=== PATIENT | female | born 1985 | race Caucasian/White ===

== ENCOUNTER 2023-10-28 05:30 | Inpatient (IN) ==
--- NOTE | 2023-10-26 14:12 | Anesthesiology Consultation ---
Date of Service October 26, 2023 Assessment & Plan (1) Encounter for pre-operative examination: - Per life cycle assessment analyst on 10/26/23: No known infectious disease contacts, current infectious disease symptoms in past 10 days or COVID positive test result in the past 30 days. Chart Review Chart Review: entry level manufacturing engineer initiated History Surgery Operation Date: 10/28/23 07:30 Proposed Procedures p Section (Delivery of Baby Through Abdominal Incision) - Anais Beard MD Height/Weight Height: 5 ft 5 in Weight: 94.801 kg Allergies Allergy/AdvReac Type Severity Reaction Status Date / Time No Known Drug Allergies Allergy Verified 10/26/23 13:50 Medications Home Medications Medication Instructions Recorded Confirmed Last Taken [id number] 1 tab PO DAILY 04/03/23 10/26/23 Unknown [ Gummy] acetone (urine) test (Ketone Urine #50 ea 06/29/23 10/26/23 Unknown Test strips) blood sugar diagnostic (OneTouch #150 ea 06/29/23 10/26/23 Unknown Verio test strips) blood-glucose meter (OneTouch #1 ea 06/29/23 10/26/23 Unknown Verio Reflect Meter) lancets 33 gauge (OneTouch Delica #150 ea 06/29/23 10/26/23 Unknown Plus Lancet) insulin NPH isoph U-100 human 100 8 unit (0.08 mL) subcut QPM #15 mL 07/31/23 10/26/23 Unknown unit/mL (3 mL) subcutaneous pen (Novolin N FlexPen) pen needle, diabetic 32 gauge x #100 ea 07/31/23 10/26/23 Unknown 5/32" (BD Ultra-Fine Shelley Pen Needle) breast pump #1 ea 08/03/23 10/26/23 Unknown Past Medical History Medical History Complete placenta previa nos or without hemorrhage, unspecified trimester reason for planned Gestational diabetes History of chicken pox Migraine "rarely" Past Family History Family History Grandmother (Paternal) Diabetes Father Diabetes Other No family history of adverse response to anesthesia Denies family history of Ovarian cancer Breast cancer Colorectal cancer Past Surgical History Surgical History [place] teeth removed Social History Smoking Status: Never smoker Do You Dip or Chew Tobacco: No Hx Alcohol Use: No substance use type: does not use
[2023-10-28] MEDS ORDERED: LACTATED RINGER'S 1,000 ML IV PRN (05:37)
[2023-10-28] MEDS ORDERED: OXYTOCIN 30 UNITS/NSS 30 UNITS/500 ML BAG IV PRN (05:37)
[2023-10-28] MEDS ORDERED: LIDOCAINE 1% LOCAL 20 ML VIAL INFIL PRN (05:37)
[2023-10-28] MEDS ORDERED: SODIUM CHLORIDE 0.9% 250 ML IV PRN (05:49)
[2023-10-28] MEDS: LACTATED RINGER'S 1,000 ML IV SCH ×2 (05:52→19:11)
[2023-10-28 05:59] LABS: Appearance Urine Cloudy (Clear); Bacteria Urine Automated 1+ (None Seen); Bilirubin Urine Negative (Negative); Blood Urine Negative (Negative); Color Urine Yellow; Glucose Urine UA Negative (Negative); Ketones Urine 2+ (Negative); Leukocyte Esterase Urine 2+ (Negative); Nitrite Urine Negative (Negative); Protein Urine Trace (Negative); Specific Gravity Urine 1.022 (1.000-1.030); Urobilinogen Urine Negative (Negative); WBC Urine Automated 21-50 /hpf (0-5); pH Urine 6.5 (4.5-7.5)
[2023-10-28 06:19] LABS: Basophils # (auto) 0.04 K/uL (0.00-0.20); Basophils % (auto) 0.6 %; Eosinophils # (auto) 0.05 K/uL (0.00-0.50); Eosinophils % (auto) 0.7 %; Hematocrit (blood only) 35.2 % (37.0-47.0); Hemoglobin 12.1 g/dl (12.0-16.0); Immature Granulocytes # (auto) 0.04 K/uL (0.01-0.20); Immature Granulocytes % (auto) 0.6 %; Lymphocytes # (auto) 1.85 K/uL (1.20-3.40); Lymphocytes % (auto) 26.4 %; Mean Corpuscular Hemoglobin 29.4 pg (25.0-34.0); Mean Corpuscular Hgb Conc 34.4 g/dL (32.0-36.0); Mean Corpuscular Volume 85.4 fL (80.0-100.0); Mean Platelet Volume 9.4 fL (9.4-12.4); Monocytes # (auto) 0.51 K/uL (0.11-0.59); Monocytes % (auto) 7.3 %; Neutrophils # (auto) 4.51 K/uL (1.40-6.50); Neutrophils % (auto) 64.4 %; Platelet Count 279 K/uL (130-400); RDW Standard Deviation 40.1 fL (36.4-46.3); Red Blood Count 4.12 M/uL (4.20-5.40)
[2023-10-28] MEDS ORDERED: OXYTOCIN 10 UNITS/ML VIAL ONE ×2 (06:48→07:16)
[2023-10-28] MEDS ORDERED: METHYLERGONOVINE MALEATE 0.2 MG/ML AMP ONE (06:52)
[2023-10-28] MEDS ORDERED: CARBOPROST TROMETHAMINE 250 MCG/ML AMPUL ONE (07:12)
[2023-10-28] MEDS ORDERED: DEXAMETHASONE SOD INJ 4 MG/ML VIAL ONE (07:16)
[2023-10-28] MEDS ORDERED: ONDANSETRON INJ 2 MG/ML 2 ML VIAL ONE (07:16)
[2023-10-28] MEDS ORDERED: GLYCOPYRROLATE 0.2 MG/ML VIAL ONE (07:16)
--- NOTE | 2023-10-28 07:27 | History & Physical Bridge Note ---
Date of Service October 28, 2023 History & Physical Bridge Note I have examined the patient, reviewed the History & Physical and in the interval since the performance of the History & Physical I have noted the following changes of clinical significance: no changes noted
[2023-10-28] MEDS: CITRIC ACID/SODIUM CITRATE 15 ML UDC PO SCH (07:36)
[2023-10-28] MEDS ORDERED: MoRPHine SULFATE PF 1 MG/ML 10 ML AMP/VIAL ONE (07:48)
[2023-10-28] MEDS ORDERED: fentaNYL citrate PF 100 MCG/2 ML VIAL ONE (07:48)
[2023-10-28] MEDS: ceFAZolin 2000MG 2,000 MG/15 ML SYR IV STA (07:48)
[2023-10-28] MEDS ORDERED: HYDROmorphone INJ 0.5 MG/0.5 ML SYR IV PRN (08:28)
[2023-10-28] MEDS ORDERED: NALBUPHINE HCL 5 MG in SYRINGE 0 ML IV PRN (08:28)
[2023-10-28] MEDS ORDERED: LACTATED RINGER'S 500 ML IV PRN (08:28)
[2023-10-28] MEDS ORDERED: NALOXONE HCL 0.4 MG/1 ML VIAL/CARP IV PRN (08:28)
[2023-10-28] MEDS ORDERED: diphenhydrAMINE 50 MG/ML VIAL IV PRN ×2 (08:28→09:44)
[2023-10-28] MEDS ORDERED: ONDANSETRON INJ 2 MG/ML 2 ML VIAL IV PRN ×2 (08:28→09:44)
[2023-10-28] MEDS ORDERED: MoRPHine SULFATE PF 1 MG/ML 10 ML AMP/VIAL INT SPINAL ONE (08:28)
[2023-10-28] MEDS ORDERED: NALOXONE HCL 0.08 MG in SYRINGE 1.8 ML IV PRN (08:28)
[2023-10-28] MEDS ORDERED: PROMETHAZINE HCL 6.25 MG in SODIUM CHLORIDE 0.9% 50 ML IV PRN (08:28)
[2023-10-28] MEDS ORDERED: DROPERIDOL 5 MG/2 ML VIAL IV PRN (08:28)
[2023-10-28] MEDS ORDERED: NALOXONE HCL 1 MG in SODIUM CHLORIDE 0.9% 1,000 ML IV PRN (08:28)
[2023-10-28] MEDS ORDERED: MEPERIDINE HCL 25 MG/ML CARP/VIAL IV PRN (08:28)
[2023-10-28] MEDS ORDERED: DC INTRASPINAL MORPHINE SCH (08:30)
[2023-10-28] MEDS ORDERED: NO NARCOTICS OR SEDATIVES SCH (08:30)
[2023-10-28] MEDS ORDERED: SODIUM CHLORIDE 0.9% 1,000 ML IV SCH (08:30)
[2023-10-28] MEDS ORDERED: KETOROLAC 30 MG/ML VIAL ONE (08:44)
--- NOTE | 2023-10-28 08:58 | Operative Report ---
PG Post Operative Report Pre & Post Diagnosis Operation Date: 10/28/23 07:30 Pre-Op Diagnosis: SIUP @ 37wk, Gestational Diabetes, Complete Placenta Previa Post-Op Diagnosis: Same; Delivery of a live male child at 0822 I identified the patient and participated in the time-out.: Yes Procedure Operation Date: 10/28/23 07:30 Actual Procedures 1' Low Transverse Section Surgeon Anais Beard MD Finishing Pan Operator Arely Estimated Blood Loss 600 Findings Consistent with Post-Op Diagnosis Specimens Placenta, Cord blood. Anesthesia Type Spinal Complications none Disposition Accompanied Patient To Recovery: Yes Disposition: L&D Description of Procedure The patient was placed operating table in the supine position with a leftward tilt. She was prepped and draped in standard sterile fashion. The anesthetic was tested and found to be adequate. A time-out was held, identifying correct patient, procedure, positioning and preoperative antibiotics. There were no concerns. A Pfannenstiel skin incision was made with a knife and taken down to the underlying layer of fascia. The fascia was incised in the midline with the knife and taken out laterally with scissors. The superior edge of the fascial incision was grasped, elevated and dissected off the underlying rectus both superiorly and inferiorly. The muscles were bluntly in the midline. The peritoneum was entered bluntly. The incision was then stretched. The bladder retractor was placed. The vesicouterine peritoneum was identified, entered with scissors and taken out laterally with scissors. The bladder flap was created digitally. A hysterotomy incision was created transversely in the lower uterine segment, final entry being accomplished in a blunt manner with the wagon drill operator's fingers. Clear amniotic fluid was encountered. The wagon drill operator's hand was used to elevate the head to the hysterotomy. The head was delivered using mild fundal pressure, and the shoulders and body followed without difficulty. The cord was clamped and cut and the was then handed off to the awaiting floor plan adjuster. A true cord knot was encountered and untied. Cord blood was obtained. The placenta was Manually extracted. It was confirmed to be a complete previa overlying the cervix and primarily posterior. The uterus was exteriorized and cleared of all clot and debris with moistened laparotomy sponges. The hysterotomy incision was repaired in two layers, the first in a running locked layer, the second in an imbricating layer. The ovaries and tubes were seen to be normal bilaterally. The uterus was gently replaced in the abdomen, and the gutters were cleared of clot and debris. A final inspection of the hysterotomy revealed good hemostasis. The rectus muscles were allowed to reapproximate naturally. The fascia was then reapproximated with 1 Vicryl in a running nonlocked manner. The fascia was examined and found to be free of defect following closure. The subcutaneous tissue was copiously irrigated and alina pproximated with 0-chromic, then the skin edges were closed with 4-0 monocryl in a subcuticular fashion. A dermabond dressing was applied. The rubio was found to be draining clear yellow urine at completion of the procedure. I attest to the content of the Intraoperative Record and any orders documented therein. Any exceptions are noted below. I attest to the content of the Intraoperative Record and any orders documented therein. Any exceptions are noted below.
[2023-10-28] MEDS ORDERED: DIPHTHER/TETAN/PERTUS Vaccine (Tdap, Adol/Adult) 0.5mL IM ONE (09:44)
[2023-10-28] MEDS ORDERED: HYDROCORTISONE ACETATE 25 MG SUPP PR PRN (09:44)
[2023-10-28] MEDS ORDERED: MAGNESIUM HYDROXIDE SUSP 30 ML UDC PO PRN (09:44)
[2023-10-28] MEDS ORDERED: PROMETHAZINE HCL 25 MG in SODIUM CHLORIDE 0.9% 50 ML IV PRN (09:44)
[2023-10-28] MEDS ORDERED: SENNA 8.6 MG TAB PO PRN (09:44)
[2023-10-28] MEDS ORDERED: BENZOCAINE 20% SPRY 85 APPLN/85 GM CAN EXT PRN (09:44)
[2023-10-28] MEDS ORDERED: OXYTOCIN 20 UNITS/1002ML LR IV ONE (09:56)
[2023-10-28] MEDS: ePHEDrine sulfate 50 MG/ML AMP IV PRN (10:06)
[2023-10-28] MEDS: OXYTOCIN 30 UNITS/LR 1,003 ML IV SCH (10:29)
--- NOTE | 2023-10-28 10:45 | Anesthesiology Progress Note ---
Date of Service October 28, 2023 Anesthesia Post Procedure Vital Signs Vital Signs: Temp Pulse Resp BP Pulse Ox 10/28/23 10:41 78 110/64 10/28/23 10:40 84 98 10/28/23 10:35 87 98 10/28/23 10:31 79 107/65 10/28/23 10:30 87 98 10/28/23 10:30 83 97 10/28/23 10:27 88 94 10/28/23 10:25 103 H 98 10/28/23 10:22 87 93 10/28/23 10:21 67 107/59 L 10/28/23 10:20 83 95 10/28/23 10:16 67 103/55 L 10/28/23 10:15 66 97 10/28/23 10:11 68 119/69 10/28/23 10:10 65 96 10/28/23 10:09 77 95/59 L 10/28/23 10:05 69 94 10/28/23 10:01 69 87/53 L 10/28/23 10:00 36.6 C 77 95/59 L 10/28/23 10:00 70 94 10/28/23 09:55 66 96 10/28/23 09:51 65 86/54 L 10/28/23 09:50 69 94 10/28/23 09:50 72 97 10/28/23 09:46 69 94 10/28/23 09:45 68 95 10/28/23 09:41 76 98/58 L 94 10/28/23 09:40 82 97 10/28/23 09:40 78 96 10/28/23 09:35 82 97 10/28/23 09:31 76 91/55 L 10/28/23 09:30 72 94 10/28/23 09:30 86 96 10/28/23 09:28 72 94 10/28/23 09:25 77 98 10/28/23 09:21 93 10/28/23 09:21 67 10/28/23 09:21 69 91/55 L 10/28/23 09:20 77 98 10/28/23 09:20 72 98 10/28/23 09:15 80 98 10/28/23 09:11 69 92/48 L 10/28/23 09:10 67 91/55 L 93 10/28/23 09:10 68 97 10/28/23 09:05 72 97 10/28/23 09:04 78 93 10/28/23 09:01 70 97/51 L 10/28/23 09:00 36.5 C 69 91/55 L 10/28/23 09:00 74 95 10/28/23 05:49 36.8 C 89 18 103/59 L 10/28/23 05:45 36.8 C 89 18 103/59 L Transfer of Care Handoff Completed per policy Notes Mental Status: alert / awake / arousable Patient Amnestic to Procedure: Yes Nausea / Vomiting: adequately controlled Pain: adequately controlled Airway Patency, RR, SpO2: stable & adequate BP & HR: stable & adequate Hydration State: stable & adequate Neuraxial Anesthesia: was administered and sensory block is resolving Anesthetic Complications: no major complications apparent and Pt Satisfied with anesthetic care
[2023-10-28] MEDS: KETOROLAC 30 MG/ML VIAL IV PRN (13:44)
[2023-10-28] MEDS: DOCUSATE SODIUM 100 MG CAP PO SCH (20:34)
[2023-10-28] MEDS: SIMETHICONE 80 MG CHEW PO SCH (20:35)
[2023-10-29] MEDS ORDERED: MEPERIDINE HCL 50 MG/ML CARP IV PRN (02:29)
[2023-10-29] MEDS ORDERED: diphenhydrAMINE Capsule 25 MG CAP PO PRN (02:29)
[2023-10-29] MEDS: KETOROLAC 30 MG/ML VIAL IV PRN (02:43)
--- NOTE | 2023-10-29 05:56 | Obstetrical Progress Note ---
Date of Service <Ga Kaminski DO - Last Filed: 10/29/23 06:58> October 29, 2023 Assessment & Plan <Ga Kaminski DO - Last Filed: 10/29/23 06:58> (1) Encounter for assessment: Plan 38 y/o POD#1: Eating well, voiding well, ambulating well Vitals reviewed, WNL Pain well controlled with Toradol Routine post op care - OOB, ambulation, diet progression as tolerated Will have 6 week follow up with Dr. Beard <Anais Beard MD - Last Filed: 10/29/23 07:33> (1) Encounter for assessment: Subjective <Ga Kaminski DO - Last Filed: 10/29/23 06:58> Ambulation: ambulating normally Voiding: no voiding problems Passing Gas:: Yes Diet Tolerance:: regular diet Lochia:: Small Feeding Type:: breast feeding Pain well controlled with Toradol Review of Systems -Denies fever or chills -Denies dyspnea, chest pain, or palpitations -Denies dysuria -Denies headache or changes in vision Physical Exam <Ga Kaminski DO - Last Filed: 10/29/23 06:58> General: Alert and oriented. No acute distress Cardiac: Regular rate and rhythm, no murmurs appreciated Respiratory: Lungs clear to auscultation bilaterally, No increased work of breathing Abdominal: Soft, non-tender, non-distended. Bowel sounds present. Uterus: Uterine fundus firm, palpable below umbilicus. Incision site clean and dry. Extremities: No lower extremity edema, calves non-tender bilaterally Results & Data <Ga Kaminski DO - Last Filed: 10/29/23 06:58> Vital Signs (Past 12 Hours) Vital Signs Temp Pulse Resp BP Pulse Ox O2 Del Method 10/29/23 03:05 36.9 C 66 18 122/69 100 Room Air 10/29/23 02:30 18 99 10/29/23 01:15 18 96 10/29/23 00:12 18 100 10/28/23 23:35 36.6 C 69 18 105/66 98 Room Air 10/28/23 23:10 18 100 10/28/23 22:30 18 96 10/28/23 21:00 18 98 10/28/23 20:00 18 98 10/28/23 19:00 18 98 10/28/23 18:59 37.1 C 74 18 92/50 L 98 Room Air 10/28/23 18:30 18 97 Supervising Physician <Anais Beard MD - Last Filed: 10/29/23 07:33> Co-Signing Physician Notes Resident Physician Supervision Note: I interviewed and examined the patient. Discussed with Dr. Kaminski and agree with findings and plan as documented in the note. Any exceptions or clarifications are listed here: [ ] Documented By: Anais Beard MD, FACOG Resident Activity Tracking <Ga Kaminski DO - Last Filed: 10/29/23 06:58> Resident Involvement: Resident Care Provided Care Provided: OB Delivery
[2023-10-29 06:11] LABS: Basophils # (auto) 0.03 K/uL (0.00-0.20); Basophils % (auto) 0.4 %; Eosinophils # (auto) 0.07 K/uL (0.00-0.50); Hematocrit (blood only) 29.7 % (37.0-47.0); Hemoglobin 9.6 g/dl (12.0-16.0); Immature Granulocytes # (auto) 0.03 K/uL (0.01-0.20); Immature Granulocytes % (auto) 0.4 %; Lymphocytes # (auto) 2.04 K/uL (1.20-3.40); Lymphocytes % (auto) 29.1 %; Mean Corpuscular Hemoglobin 28.7 pg (25.0-34.0); Mean Corpuscular Hgb Conc 32.3 g/dL (32.0-36.0); Mean Corpuscular Volume 88.7 fL (80.0-100.0); Mean Platelet Volume 9.5 fL (9.4-12.4); Monocytes # (auto) 0.61 K/uL (0.11-0.59); Monocytes % (auto) 8.7 %; Neutrophils # (auto) 4.23 K/uL (1.40-6.50); Neutrophils % (auto) 60.4 %; Platelet Count 204 K/uL (130-400); RDW Coefficient of Variation 13.1 % (11.5-14.5); RDW Standard Deviation 42.1 fL (36.4-46.3); Red Blood Count 3.35 M/uL (4.20-5.40); White Blood Count 7.01 K/ul (4.8-10.8)
[2023-10-29] MEDS: FERROUS SULFATE 325 MG TAB PO SCH (08:47)
[2023-10-29] MEDS: IBUPROFEN 600 MG TAB PO PRN (08:47)
[2023-10-29] MEDS: PRENATAL VITAMIN 1 TAB PO SCH (08:47)
[2023-10-29] MEDS: oxyCODONE/ACETAMINOPHEN 5mg/325mg TAB PO PRN (08:48)
[2023-10-29] MEDS ORDERED: bisacodyL 5 MG TABEC PO SCH (20:00)
[2023-10-30] MEDS ORDERED: bisacodyL 10 MG SUPP PR PRN (08:59)
--- NOTE | 2023-10-30 16:50 | Discharge Summary ---
Date of Service October 30, 2023 Discharge Data Consultations 10/28/23 05:37 Consult Anesthesiology Stat Consult Anesthesiology Stat Procedures Performed Operation Date: 10/28/23 07:30 Actual Procedures p Section in OR - Anais Beard MD Hospital Course (1) Encounter for assessment: Plan 38 y/o POD#1: Eating well, voiding well, ambulating well Vitals reviewed, WNL Pain well controlled with Toradol Routine post op care - OOB, ambulation, diet progression as tolerated Will have 6 week follow up with Dr. Beard Coding Level of Care Code None Diagnoses Encounter for assessment Z39.2
== END 2023-10-29 14:45 | disposition home or self-care (01) | DRG 786 ==
LOC: 4S1 05:30 → EDSTATUS 07:30 → 4E2 13:44